=== PATIENT | female | born 1970 | race Caucasian/White ===

== ENCOUNTER 2016-07-29 11:19 | Emergency (ER) | payer OTHER ==
[2016-07-29 11:53] LABS: BLOOD UREA NITROGEN 11 mg/dL (7-18); CALCIUM 8.9 mg/dL (8.7-10.7); CARBON DIOXIDE 24 mmol/L (21-32); CREATININE 0.5 mg/dL (0.6-1.3); POTASSIUM 4.5 mmol/L (3.5-5.1); SODIUM 136 mmol/L (136-145)
[2016-07-29 12:06] LABS: GLUCOSE,RANDOM 421 mg/dL (70-99)
== END 2016-07-29 13:52 | disposition home or self-care (01) ==
LOC: ER 11:19
PROVIDERS: General Practice
DX: E11.65 Type 2 diabetes mellitus with hyperglycemia (principal); M79.604 Pain in right leg; M51.34 Other intervertebral disc degeneration, thoracic region; K80.80 Other cholelithiasis without obstruction; I10 Essential (primary) hypertension; Z79.4 Long term (current) use of insulin; Z79.899 Other long term (current) drug therapy
CPT/HCPCS: 36415; 72128; 72131; 73700; 80048; 85379; 99283-25